=== PATIENT | male | born 1975 | race Caucasian/White ===

== ENCOUNTER → 2022-09-22 12:28 | Outpatient (REF) | payer OTHER, SELFPAY ==
--- NOTE | 2022-09-22 12:37 | CA_ITS ---
Transthoracic Echocardiogram Patient (Last, First, Middle): Westley Matute, Gender: Male Date of : 1975 Age: 47 Procedure Date: 09/22/2022 Procedure Type: Transthoracic Echocardiogram Location: [place] Height: 182.88 cm Weight: 96.62 kg BSA: 2.19 m2 Heart Rate: 65 bpm BP: 128 / 68 mmHg Equipment Services Associate: SB Referring MD: Christina Alvarenga MD Symptoms: R94.31 ANORMAL EKG Study Quality: Adequate ECG Rhythm: Sinus Conclusions: - The left ventricular systolic function is normal. The calculated ejection fraction is 61% by biplane method. - No obvious valvular pathology seen on this study. - There is mild dilatation of the sinuses of Valsalva measuring 4.40 cm and mild dilatation of the ascending aorta measuring 3.90 cm. Findings Left Ventricle Normal left ventricular cavity size. The left ventricular systolic function is normal. The calculated ejection fraction is 61% by biplane method. There is no evidence of regional wall motion abnormalities. Diastolic function is normal for age. There is mild septal asymmetric hypertrophy. LV peak GLS 17.6%. Right Ventricle Normal right ventricular cavity size and systolic function. Atria Both atria are normal in size. Aortic Valve There is a normal trileaflet aortic valve. There is no aortic valve stenosis. There is no aortic valve regurgitation. Mitral Valve The mitral valve appears normal. There is mild mitral valve regurgitation. There is no mitral valve stenosis. Pulmonic Valve There is trace pulmonic valve regurgitation. Tricuspid Valve Normal tricuspid valve structure. There is no tricuspid valve regurgitation. Tricuspid regurgitation envelope is inadequate for calculation of right ventricular systolic pressure. Great Vessels There is mild dilatation of the sinuses of Valsalva measuring 4.40 cm and mild dilatation of the ascending aorta measuring 3.90 cm. Venous The inferior vena cava is normal in size and collapses greater than 50% with inspiration. Pericardium/Pleural There is no evidence of pericardial effusion. Prior Study Comparison No prior study available for comparison. Recommendations, Care & Conclusions No obvious valvular pathology seen on this study. Measurements 2D Linear Measurements IVSd: 1.08 0.6-0.9/0.6-1.0 cm LVIDd: 5.24 3.9-5.3/4.2-5.9 cm LVIDd Index: 2.39 2.4-3.2/2.2-3.1 cm/m2 LVIDs: 3.49 2.0-3.6 cm LVPWd: 0.77 0.7-1.1 cm LA Diam: 3.30 2.7-3.8/3.0-4.0 cm LAIDs Index: 1.51 1.5-2.3 cm/m2 LV Mass: 221.34 67-162/88-224 g LV Mass Index: 101.07 43-95/49-115 g/m2 LVOT Diam: 2.30 3.0+(-)1.3 cm 2D Systolic Function EF 4C: 62.90 >55% EF 2C: 61.70 >55% EF BiP: 61.40 >55% Mitral Valve MV Pk E: 0.75 MV PK A: 0.51 MV Decel Time: 208.00 E/A: 1.50 E'Lateral: 9.36 E'Medial: 8.92 E/E' Med: 8.40 E/E' Lat: 8.00 PHT: 61.00 MVA PHT: 3.61 Decel Walsh: 3.61 Aortic Valve AoV Pk Kristian: 1.02 AoV Pk Grad: 4.00 VALDEMAR: 3.48 LVOT LVOT Pk Kristian: 0.86 LVOT Mn Kristian: 0.59 LVOT VTI: 0.17 LVOT Pk Grad: 3.00 LVOT Mn Grad: 2.00 LVOT Diam: 2.30 LVOT Area: 4.15 Diastolic Function MV Pk E: 0.75 MV Pk A: 0.51 E/A: 1.50 E'Medial: 8.92 E/E' Med: 8.40 E' Laterial: 9.36 E/E' Lat: 8.00 Right Ventricle TAPSE (mm): 23.50 TVS' Kristian: 17.50 Great Vessels Aorta Sinus of Valsalva: 4.40 2.0-3.5 cm Ao Asc: 3.90 2.1-3.4 cm Pulmonary Valve PV Pk Kristian: 1.13 Peak PV Grad: 5.00 Updated in Other Vendor System with Status of Final Cesario Thompson MD electronically signed on 09/23/2022 11:19:40 AM with status of Final
== END ==
LOC: HO.CARD 12:28
PROVIDERS: PCP Family Medicine; Visit Provider Family Medicine
DX: R94.31 Abnormal electrocardiogram [ECG] [EKG] (principal)
CPT/HCPCS: 93306; 93356